=== PATIENT | male | born 1945 | race Caucasian/White ===

== ENCOUNTER 2017-06-26 11:19 | Emergency (ER) | payer OTHER, MEDICARE ==
[2017-06-26 11:45] VITALS: BP 151/93
--- NOTE | 2017-06-26 12:24 | EDM.PDOC ---
ED HPI GENERAL MEDICAL PROBLEM - General Chief Complaint: Upper Extremity Injury/Pain Stated Complaint: FX R PINKY FINGER, OWN VEHICLE Time Seen by Provider: 06/26/17 11:50 Source of Information: Reports: Patient, RN, RN Notes Reviewed, Other (Kelsi Rich PA-C, from [place]) - History of Present Illness INITIAL COMMENTS - FREE TEXT/NARRATIVE: Patient presents to the ER at the request of his PA, Kelsi Rich, from the [place]. He saw her on telemedicine yesterday, and had an x-ray of the right hand. He states he may have hit his hand on something as it became very edematous and ecchymotic. He has a history of stroke, cannot move the right arm/hand, and has no feeling. Kelsi Rich contacted the ER and asked if the patient could be splinted, as he had a fracture on the x-ray from yesterday. Patient denies any further problems. - Related Data Allergies Allergy/AdvReac Type Severity Reaction Status Date / Time No Known Allergies Allergy Verified 06/01/15 06:52 Home Meds: Home Meds Clopidogrel [Plavix] 1 tab PO DAILY 05/28/15 [History] Ezetimibe [Zetia] 1 tab PO DAILY 05/28/15 [History] Multivitamin [Multivitamins] 1 tab PO DAILY 05/28/15 [History] [place]-3/DHA/Epa/Fish Oil [Fish Oil 1,000 mg Softgel] 1 tab PO DAILY 05/28/15 [ History] Potassium Gluconate [Potassium] 1 tab PO DAILY 05/28/15 [History] Past Medical History HEENT History: Reports: Impaired Vision Neurological History: Reports: CVA Other Neuro History: R) sided weakness Social & Family History - Family History Family Medical History: Noncontributory - Tobacco Use Smoking Status *Q: Never Smoker - Caffeine Use Caffeine Use: Reports: None - Recreational Drug Use Recreational Drug Use: No Review of Systems - Review of Systems Review Of Systems: ROS reveals no pertinent complaints other than HPI. ED EXAM, GENERAL - Physical Exam Exam: See Below Exam Limited By: Physical Impairment (past hx of stroke, no feeling, limited ROM Right upper extremity) General Appearance: Alert, WD/WN, No Apparent Distress Eye Exam: Bilateral Eye: Normal Inspection Ears: Normal External Exam, Hearing Grossly Normal Nose: Normal Inspection Throat/Mouth: Normal Inspection, Normal Voice, No Airway Compromise Head: Atraumatic, Normocephalic Neck: Normal Inspection, Supple, Non-Tender, Full Range of Motion Respiratory/Chest: No Respiratory Distress, Lungs Clear, Normal Breath Sounds, No Accessory Muscle Use, Chest Non-Tender Cardiovascular: Normal Peripheral Pulses, Regular Rate, Rhythm, No Edema, No Gallop, No JVD, No Murmur, No Rub Peripheral Pulses: 2+: Radial (L), Radial (R) GI/Abdominal: Normal Bowel Sounds, Soft, Non-Tender (Male) Exam: Deferred Rectal (Males) Exam: Deferred Back Exam: Normal Inspection, Full Range of Motion Extremities: Non-Tender, No Pedal Edema, Normal Capillary Refill, Limited Range of Motion, Other (right hand is grossly edematous and ecchymotic across the proximal joints ). No: Normal Inspection, Normal Range of Motion Neurological: Alert, Oriented, Normal Cognition, No Motor/Sensory Deficits Psychiatric: Normal Affect, Normal Mood Skin Exam: Warm, Dry, Intact, Normal Color, No Rash Lymphatic: No Adenopathy ED TRAUMA EXTREMITY PROCEDURES - Splinting Right Upper Extremity Splint Site: right hand Pre-Procedure NV Status: Normal Post-Procedure NV Status: Normal Splint Material: Fiberglass Splint Design: Gutter Applied & Form Fitted By: Provider Provider Post-Splint Application NV Check: NV Status Normal, Good Position Complications: No Course - Vital Signs Last Recorded V/S: Last Vital Signs Temp 97.1 F 06/26/17 11:38 Pulse 96 06/26/17 11:38 Resp 18 06/26/17 11:38 BP 151/93 H 06/26/17 11:38 Pulse Ox 97 06/26/17 11:38 Departure - Departure Time of Disposition: 12:22 Disposition: Home, Self-Care 01 Condition: Good Clinical Impression: Closed fracture of proximal phalanx of digit of right hand Qualifiers: Encounter type: initial encounter Qualified Code(s): S62.619A - Displaced fracture of proximal phalanx of unspecified finger, initial encounter for closed fracture - Discharge Information Instructions: Cast or Splint Care, [id number], Metacarpal Fracture, Easy-to- Read Referrals: PCP,None [Primary Care Provider] - Forms: ED Department Discharge Additional Instructions: Keep splint on, clean and dry. [facility]. Ice the area as tolerated Tylenol or ibuprofen as directed for pain.
== END 2017-06-26 12:40 | disposition home or self-care (01) ==
LOC: DL.ED 11:19
DX: S62.616A Displaced fracture of proximal phalanx of right little finger, initial encounter for closed fracture (principal); W22.8XXA Striking against or struck by other objects, initial encounter; Z79.899 Other long term (current) drug therapy
CPT/HCPCS: 29125; 99283

== ENCOUNTER 2017-08-11 16:25 | Emergency (ER) | payer MEDICARE, OTHER ==
[2017-08-11 17:25] LABS: CHLORIDE,CL 105 mmol/L (101-111); SODIUM,NA 140 mmol/L (135-145)
--- NOTE | 2017-08-11 17:41 | EDM.PDOC ---
ED HPI GENERAL MEDICAL PROBLEM - General Chief Complaint: Upper Extremity Injury/Pain Stated Complaint: [facility] Time Seen by Provider: 08/11/17 16:35 Source of Information: Reports: Patient History Limitations: Reports: No Limitations - History of Present Illness INITIAL COMMENTS - FREE TEXT/NARRATIVE: This 72 yo male patient was sent to the ED from the [facility] (Telemed) due to right hand swelling. The patient does not know what happened to his hand, but noticed increased swelling today. The patient does not recall any recent trauma , but did have a previous fracture to the hand in the past. According to the [facility] records sent with the patient to the ED, the patient had his splint taken off on 07/24/17. The assessment at that time revealed that there was no swelling to the hand or wrist. During the appointment today, the patient was noted to have cool skin, that is purple. The patient does have a history of a previous CVA that affected the right side of his body also. Onset: Today Duration: Constant Location: Reports: Upper Extremity, Right Quality: Reports: Other (swelling of the right hand) Severity: Moderate Improves with: Reports: None Worsens with: Reports: None Associated Symptoms: Reports: No Other Symptoms - Related Data Allergies Allergy/AdvReac Type Severity Reaction Status Date / Time No Known Allergies Allergy Verified 08/11/17 16:30 Home Meds: Home Meds Fish Oil/[place]-3 Fatty Acids [Fish Oil 1,000 MG] 1 cap PO BID 08/11/17 [History] Multivitamin with Minerals [Multivitamins with Minerals] 1 tab PO DAILY [History] Non-Formulary Medication [NF Drug] 1 drop EYEBOTH BEDTIME 08/11/17 [History] Rivaroxaban [Xarelto] 20 mg PO BEDTIME 08/11/17 [History] atorvaSTATin [Lipitor] 20 mg PO BEDTIME 08/11/17 [History] Past Medical History HEENT History: Reports: Impaired Vision Neurological History: Reports: CVA Other Neuro History: R) sided weakness Social & Family History - Family History Family Medical History: Noncontributory - Tobacco Use Smoking Status *Q: Never Smoker - Caffeine Use Caffeine Use: Reports: None - Recreational Drug Use Recreational Drug Use: No Review of Systems - Review of Systems Review Of Systems: ROS reveals no pertinent complaints other than HPI. ED EXAM, GENERAL - Physical Exam Exam: See Below Exam Limited By: No Limitations General Appearance: Alert, WD/WN, Mild Distress Eye Exam: Bilateral Eye: EOMI, Normal Inspection, PERRL Ears: Normal External Exam, Normal Canal, Hearing Grossly Normal, Normal TMs Nose: Normal Inspection, Normal Mucosa, No Blood Throat/Mouth: Normal Inspection, Normal Lips, Normal Teeth, Normal Gums, Normal Oropharynx, Normal Voice, No Airway Compromise Head: Atraumatic, Normocephalic Neck: Normal Inspection, Supple, Non-Tender, Full Range of Motion Respiratory/Chest: No Respiratory Distress, Lungs Clear, Normal Breath Sounds, No Accessory Muscle Use, Chest Non-Tender Cardiovascular: Normal Peripheral Pulses, Regular Rate, Rhythm, No Edema, No Gallop, No JVD, No Murmur, No Rub GI/Abdominal: Normal Bowel Sounds, Soft, Non-Tender, No Organomegaly, No Distention, No Abnormal Bruit, No Mass (Male) Exam: Deferred Rectal (Males) Exam: Deferred Back Exam: Normal Inspection, Full Range of Motion, NT Extremities: Other (right hand swelling and discoloration) Neurological: Alert, Oriented, CN II-XII Intact, Normal Cognition, Normal Gait, Normal Reflexes, No Motor/Sensory Deficits Psychiatric: Normal Affect, Normal Mood Skin Exam: Warm, Dry, Intact, Normal Color, No Rash Lymphatic: No Adenopathy Course - Vital Signs Last Recorded V/S: Last Vital Signs Temp 36.9 C 08/11/17 17:37 Pulse 98 08/11/17 17:37 Resp 18 08/11/17 17:37 BP 124/82 08/11/17 17:37 Pulse Ox 95 08/11/17 17:37 - Orders/Labs/Meds Orders: Active Orders 24 hr Category Date Time Status Hand Comp Min 3V Rt [CR] Urgent Exams 08/11/17 16:38 Ordered Hand Comp Min 3V Rt [CR] Urgent Exams 08/11/17 16:44 Taken Wrist 2V Rt [CR] Urgent Exams 08/11/17 16:38 Ordered Wrist 2V Rt [CR] Urgent Exams 08/11/17 16:44 Taken CBC WITH AUTO DIFF [HEME] Urgent Lab 08/11/17 16:38 Ordered COMPREHENSIVE METABOLIC PN,CMP [CHEM] Urgent Lab 08/11/17 16:38 Ordered Labs: Laboratory Tests 08/11/17 08/11/17 Range/Units 16:55 16:55 WBC 5.1 (5.0-10.0) 10^3/uL RBC 4.53 L (4.6-6.2) 10^6/uL Hgb 14.8 (14.0-18.0) g/dL Hct 45.5 (40.0-54.0) % MCV 100.4 H (80-100) fL MCH 32.7 (27.0-34.0) pg MCHC 32.5 L (33.0-35.0) g/dL Plt Count 166 (150-450) 10^3/uL Neut % (Auto) 70.4 (42.2-75.2) % Lymph % (Auto) 17.8 L (20.5-50.1) % [place] % (Auto) 10.4 H (2-8) % Eos % (Auto) 1.0 (1.0-3.0) % Baso % (Auto) 0.4 (0.0-1.0) % Sodium 140 (135-145) mmol/L Potassium 4.1 (3.6-5.0) mmol/L Chloride 105 (101-111) mmol/L Carbon Dioxide 27.0 (21.0-31.0) mmol/L Anion Gap 12.1 BUN 14 (7-18) mg/dL Creatinine 0.7 (0.6-1.3) mg/dL Est Cr Clr Drug Dosing 104.58 mL/min Estimated GFR (MDRD) > 60 BUN/Creatinine Ratio 20.00 Glucose 116 H (74-105) mg/dL Calcium 9.0 (8.4-10.2) mg/dl Total Bilirubin 0.6 (0.2-1.0) mg/dL AST 70 H (10-42) IU/L ALT 92 H (10-60) IU/L Alkaline Phosphatase 151 H (42-121) IU/L Total Protein 7.6 (6.7-8.2) g/dl Albumin 3.9 (3.2-5.5) g/dl Globulin 3.7 Albumin/Globulin Ratio 1.05 Departure - Departure Time of Disposition: 18:07 Disposition: Home, Self-Care 01 Condition: Fair Clinical Impression: Soft tissue swelling - Discharge Information Forms: ED Department Discharge Care Plan Goals: The patient was advised of the examination and x-ray results during the visit. The patient was placed in a right forearm and hand splint while in the ED. The patient was encouraged to follow-up with an release of information specialist within the next week. If the patient has any additional symptoms or concerns, the patient should follow-up with his primary care facility or return to the emergency department. - My Orders Last 24 Hours: My Active Orders 08/11/17 16:38 Hand Comp Min 3V Rt [CR] Urgent Wrist 2V Rt [CR] Urgent CBC WITH AUTO DIFF [HEME] Urgent COMPREHENSIVE METABOLIC PN,CMP [CHEM] Urgent 08/11/17 16:44 Hand Comp Min 3V Rt [CR] Urgent Wrist 2V Rt [CR] Urgent - Assessment/Plan Last 24 Hours: My Active Orders 08/11/17 16:38 Hand Comp Min 3V Rt [CR] Urgent Wrist 2V Rt [CR] Urgent CBC WITH AUTO DIFF [HEME] Urgent COMPREHENSIVE METABOLIC PN,CMP [CHEM] Urgent 08/11/17 16:44 Hand Comp Min 3V Rt [CR] Urgent Wrist 2V Rt [CR] Urgent
--- NOTE | 2017-08-11 18:21 | CR ---
Impression: 72-year-old male history of previous trauma and now soft tissue swelling/pain. Interpretation: Old fracture deformities distal end of the fifth metacarpal and base of the proximal phalanx right small finger as noted on June exam. Soft tissue swelling dorsum of the hand. Generalized osteopenia but no sign of acute right wrist fracture or dislocation. No foreign bodies.
[2017-08-11 18:29] VITALS: BP 143/95
--- NOTE | 2017-08-12 11:13 | CR ---
Clinical history: 72-year-old male pain and swelling (history fracture). Interpretation: Old healed fracture deformity head of the fifth metacarpal and base of the proximal p halanx this same small finger (arthritic changes fifth carpophalangeal joint close breast. Generalized osteopenia and chronic arthritic changes carpal metacarpal, first carpophalangeal and all interphalangeal/DIP joints. There is soft tissue swelling over the dorsal ulnar aspect of the hand but no sign of underlying fore ign body, inflammatory periostitis or acute fracture. CONCLUSION: Pronounced soft tissue swelling. Old fracture deformities fifth metacarpal and small fing er present on 25 June 2017 exam. No acute new fracture..
== END 2017-08-11 18:26 | disposition home or self-care (01) ==
LOC: DL.ED 16:25
DX: M79.89 Other specified soft tissue disorders (principal)
CPT/HCPCS: 36415; 73100-RT; 73130-RT; 80053; 85025; 99283

== ENCOUNTER → 2020-07-05 | Day surgery (SDC) | payer OTHER, MEDICARE ==
[~2020-07-05] MED LIST: Benzocaine 20% Topical Spray UD MUCMEM ONE; Dextrose 5%-0.45% NaCl 1,000 ML IV SCH; Midazolam 1 MG/ML 2 ML SDV IV ONE; Midazolam 1 MG/ML 2 ML SDV ONE; fentaNYL 100 MCG/2 ML SDV IV ONE; fentaNYL 100 MCG/2 ML SDV ONE
[2020-07-05 12:50] VITALS: BP 131/85; PULSE 82
--- NOTE | 2020-07-05 14:13 | OR ---
DATE: 07/05/2020 PREOPERATIVE DIAGNOSIS: Anemia. POSTOPERATIVE DIAGNOSIS: Anemia. PROCEDURE: Total colonoscopy. ANESTHESIA: Conscious sedation with IV Versed and fentanyl. SPECIMEN: None. OPERATIVE FINDINGS: Moderate sigmoid diverticulosis, otherwise normal. No evidence of bleeding sites. INDICATION FOR PROCEDURE: This 75-year-old male has anemia. He has dropped his hemoglobin from 14 to 10 over the last year. PROCEDURE IN DETAIL: After adequate preparation, a colonoscope was inserted into the rectum. This was easily passed all the way to the cecum. Confirmation of the cecum was made by visualization of the ileocecal valve and a light shining through the right lower quadrant. The bowel prep was excellent. On withdrawal of the scope, he does have some sigmoid diverticulosis. Rectal and anal examination were normal. Air was suctioned from the colon and the scope removed. [facility] /[id number]
--- NOTE | 2020-07-05 14:34 | OR ---
DATE: 07/05/2020 PREOPERATIVE DIAGNOSIS: Anemia. POSTOPERATIVE DIAGNOSIS: Anemia. PROCEDURE: Esophagogastroduodenoscopy with biopsy of gastric mucosa. ANESTHESIA: Conscious sedation with IV Versed and fentanyl. SPECIMEN: Gastric biopsies. OPERATIVE FINDINGS: Several small ulcers in the upper body of the stomach, they are not actively bleeding. Pathology is pending on the biopsy. INDICATION FOR PROCEDURE: This 75-year-old male has anemia. He has had a drop in hemoglobin from 14 to 10 over this last year. PROCEDURE IN DETAIL: After adequate preparation, a gastroscope was inserted into the esophagus. This was passed down to the EG junction. Examination of this was normal. He may have one little streak of esophagitis, but not significant, and no ulcerations or masses. The scope was advanced into the stomach. Both forward and retroflexed views were done and this does show 3 or 4 small punctate ulcers in the upper body of the stomach, not truly in the fundus, but in the body-fundus junction. These are not bleeding. Biopsy of two of these was taken for pathological confirmation. The scope was advanced through the pylorus and the first and second parts of the duodenum were normal. Air was suctioned from the stomach and the scope removed. [facility] /[id number]
== END ==
LOC: DL.ENDO 08:18
PROVIDERS: ATTEND Surgery
DX: K57.30 Diverticulosis of large intestine without perforation or abscess without bleeding (principal); D64.9 Anemia, unspecified; K29.50 Unspecified chronic gastritis without bleeding; K20.90 Esophagitis, unspecified without bleeding; K25.9 Gastric ulcer, unspecified as acute or chronic, without hemorrhage or perforation; Z01.812 Encounter for preprocedural laboratory examination; Z20.828 Contact with and (suspected) exposure to other viral communicable diseases; Z79.899 Other long term (current) drug therapy
CPT/HCPCS: A9270-GY; J2250; J3010; J7042; U0002

== ENCOUNTER 2021-08-27 15:28 | Emergency (ER) | payer OTHER ==
[2021-08-27 15:57] VITALS: BP 157/86; PULSE 104
[2021-08-27] MEDS ORDERED: Sodium Chloride 0.9% 10 ML Syringe FLUSH PRN (16:13)
[2021-08-27] MEDS ORDERED: Sodium Chloride 0.9% 500 ML IV SCH (16:15)
--- NOTE | 2021-08-27 16:49 | CR ---
EXAMINATION: Chest 1V Frontal SEX: Male AGE: 76 years CLINICAL HISTORY: 76-year-old male with cough and clinical rhonchi. Interpretation: No acute new cardiopulmonary abnormality since PA comparison CXR 10 June 2021. Borderline cardiomegaly. Evidence of several old healed fracture deformities left hemithorax with ipsilateral pleural parenchymal scarring. No new pulmonary vascular congestion, cephalization of flow, alveolar edema or dependent pleural fluid accumulation. No new lung mass or hilar lymphadenopathy. No alveolar consolidation, air bronchograms or peripheral "groundglass" interstitial lung densities. No pneumothorax or pneumomediastinum. Midline airway unremarkable. No free subdiaphragmatic air.
[2021-08-27 17:55] LABS: ANION GAP 12.9 mEq/L (7-13); CHLORIDE,CL 105 mmol/L (98-107); SODIUM,NA 145 mmol/L (136-145)
[2021-08-27 18:19] LABS: CORONAVIRUS COVID-19 NAA NEGATIVE (NEGATIVE); RESPIRATORY SYNCYTIAL VIR NAA NEGATIVE (NEGATIVE)
[2021-08-27] MEDS ORDERED: Oseltamivir 75 MG Cap PO ONE (18:53)
--- NOTE | 2021-08-27 18:53 | EDM.PDOC ---
Scribed by Marely Pizarro 08/27/21 [id number] for Fransico Stock MD ED HPI GENERAL MEDICAL PROBLEM - General Chief Complaint: Cardiovascular Problem Stated Complaint[facility] Time Seen by Provider: 08/27/21 15:41 Source of Information: Reports: Patient, RN, RN Notes Reviewed History Limitations: Reports: No Limitations - History of Present Illness INITIAL COMMENTS - FREE TEXT/NARRATIVE: Patient presents to ED via POV [facility] for evaluation of A-fib. Patient states that on 08/23/21 he fell around 1000 and was not found until the afternoon on 08/24/21. Patient denies pain, although he has bruising to his left shoulder and left anterior chest. Patient also denies head trauma. Patient does have history of CVA and a-fib. Takes Plavix, missed 08/24 dose. Patient has expressive aphasia. Onset: Gradual Duration: Getting Worse Location: Reports: Generalized Severity: Severe Improves with: Reports: None Worsens with: Reports: None Associated Symptoms: Reports: No Other Symptoms - Related Data Allergies Allergy/AdvReac Type Severity Reaction Status Date / Time No Known Allergies Allergy Verified 08/27/21 15:33 Home Meds: Home Meds Fish Oil/[place]-3 Fatty Acids [Fish Oil 1,000 MG] 1,000 mg PO BID 08/11/17 [History] Multivitamin with Minerals [Multivitamins with Minerals] 1 tab PO DAILY 08/11/17 [History] Non-Formulary Medication [NF Drug] 1 drop EYEBOTH BEDTIME 08/11/17 [History] Rivaroxaban [Xarelto] 20 mg PO BEDTIME 08/11/17 [History] atorvaSTATin [Lipitor] 20 mg PO BEDTIME 08/11/17 [History] Past Medical History HEENT History: Reports: Impaired Vision Cardiovascular History: Reports: High Cholesterol, Hypertension Respiratory History: Reports: None Gastrointestinal History: Reports: Other (See Below) Other Gastrointestinal History: APHASIA Genitourinary History: Reports: None Musculoskeletal History: Reports: Other (See Below) Other Musculoskeletal History: RIGHT SIDED HEMIPARESIS Neurological History: Reports: CVA Other Neuro History: R) sided weakness Psychiatric History: Reports: None Endocrine/Metabolic History: Reports: Obesity/BMI 30+ Hematologic History: Reports: None Immunologic History: Reports: None Oncologic (Cancer) History: Reports: None Dermatologic History: Reports: Other (See Below) Other Dermatologic History: EDEMA TO RIGHT ARM AND HAND - Infectious Disease History Infectious Disease History: Reports: Measles - Past Surgical History Head Surgeries/Procedures: Reports: None HEENT Surgical History: Reports: None Cardiovascular Surgical History: Reports: None Respiratory Surgical History: Reports: None GI Surgical History: Reports: Colonoscopy, EGD Endocrine Surgical History: Reports: None Neurological Surgical History: Reports: None Musculoskeletal Surgical History: Reports: None Oncologic Surgical History: Reports: None Dermatological Surgical History: Reports: None Social & Family History - Family History Family Medical History: No Pertinent Family History - Caffeine Use Caffeine Use: Reports: Soda Other Caffeine Use: SODA POP ED ROS GENERAL - Review of Systems Review Of Systems: Comprehensive ROS is negative, except as noted in HPI. ED EXAM, GENERAL - Physical Exam Exam: See Below Exam Limited By: No Limitations General Appearance: Alert, WD/WN, No Apparent Distress Eye Exam: Bilateral Eye: EOMI, Normal Inspection, PERRL Ears: Normal External Exam, Normal Canal, Hearing Grossly Normal, Normal TMs Nose: Normal Inspection, Normal Mucosa, No Blood Throat/Mouth: Normal Inspection, Normal Lips, Normal Teeth, Normal Gums, Normal Oropharynx, Normal Voice, No Airway Compromise Head: Atraumatic, Normocephalic Neck: Normal Inspection, Supple, Non-Tender, Full Range of Motion Respiratory/Chest: No Respiratory Distress, Lungs Clear, Normal Breath Sounds, No Accessory Muscle Use, Chest Non-Tender Cardiovascular: Irregularly Irregular GI/Abdominal: Normal Bowel Sounds, Soft, Non-Tender, No Organomegaly, No Distention, No Abnormal Bruit, No Mass (Male) Exam: Deferred Rectal (Males) Exam: Deferred Back Exam: Normal Inspection, Full Range of Motion, NT Extremities: Normal Inspection, Normal Range of Motion, Non-Tender, Normal Capillary Refill, No Pedal Edema Neurological: Other (right sided hemiparesis) Psychiatric: Normal Affect, Normal Mood Skin Exam: Warm, Dry, Intact, Normal Color, No Rash Lymphatic: No Adenopathy #1 Interpretation EKG Date: 08/27/21 Time: 16:44 Rhythm: A-Fib (with PVCs) Rate (Beats/Min): 109 [place]: Normal P-Wave: Present ST-T: Normal (borderline flat T waves diffuse) QT: Normal Course - Vital Signs Last Recorded V/S: Last Vital Signs Temp 98.7 F 08/27/21 15:33 Pulse 104 H 08/27/21 15:33 Resp 24 H 08/27/21 15:33 BP 157/86 H 08/27/21 15:33 Pulse Ox - Orders/Labs/Meds Orders: Active Orders 24 hr Category Date Time Status Peripheral IV Care [RC] . DIRECTED Care 08/27/21 16:14 Active CULTURE BLOOD [BC] Stat Lab 08/27/21 16:40 Received CULTURE BLOOD [BC] Stat Lab 08/27/21 16:46 Results UA RFX JOSEPHINE AND CULT IF INDIC [URIN] Stat Lab 08/27/21 16:13 Ordered Oseltamivir [Tamiflu] Med 08/27/21 18:53 Once 75 mg PO ONETIME ONE Sodium Chloride 0.9% [Normal Saline] 500 ml Med 08/27/21 16:15 Active IV .BOLUS Sodium Chloride 0.9% [Saline Flush] Med 08/27/21 16:13 Active 10 ml FLUSH ASDIRECTED PRN Blood Culture x2 Reflex Set [OM.PC] Stat Oth 08/27/21 16:12 Ordered Peripheral IV Insertion Adult [OM.PC] Stat Oth 08/27/21 16:13 Ordered Medication Orders Sodium Chloride (Normal Saline) 500 mls @ 999 mls/hr IV .BOLUS BETTY Last Admin: 08/27/21 18:15 Dose: 999 mls/hr Documented by: [id number] Oseltamivir Phosphate (Oseltamivir 75 Mg Cap) 75 mg PO ONETIME ONE Stop: 08/27/21 18:54 Sodium Chloride (Sodium Chloride 0.9% 10 Ml Syringe) 10 ml FLUSH ASDIRECTED PRN PRN Reason: Keep Vein Open Last Admin: 08/27/21 18:15 Dose: 10 ml Documented by: [id number] Labs: Laboratory Tests 08/27/21 08/27/21 08/27/21 Range/Units 16:40 16:40 16:40 WBC 2.9 L (5.0-10.0) 10^3/uL RBC 4.20 L (4.6-6.2) 10^6/uL Hgb 13.6 L (14.0-18.0) g/dL Hct 41.2 (40.0-54.0) % MCV 98.1 (80-100) fL MCH 32.4 (27.0-34.0) pg MCHC 33.0 (33.0-35.0) g/dL Plt Count 136 L (150-450) 10^3/uL Neut % (Auto) 64.8 (42.2-75.2) % Lymph % (Auto) 24.0 (20.5-50.1) % [place] % (Auto) 10.6 H (2-8) % Eos % (Auto) 0.3 L (1.0-3.0) % Baso % (Auto) 0.3 (0.0-1.0) % Sodium 145 (136-145) mmol/L Potassium 3.9 (3.5-5.1) mmol/L Chloride 105 (98-107) mmol/L Carbon Dioxide 31 (21-32) mmol/L Anion Gap 12.9 (7-13) mEq/L BUN 23 H (7-18) mg/dL Creatinine 0.77 (0.70-1.30) mg/dL Est Cr Clr Drug Dosing 89.64 mL/min Estimated GFR (MDRD) > 60 BUN/Creatinine Ratio 29.9 (No establ ref range) Glucose 104 H (70-99) mg/dL Lactic Acid 0.8 (0.4-2.0) mmol/L Calcium 7.7 L (8.5-10.1) mg/dL Magnesium 2.0 (1.8-2.4) mg/dL Total Bilirubin 0.8 (0.2-1.0) mg/dL AST 233 H (15-37) U/L ALT 102 H (16-63) U/L Alkaline Phosphatase 73 (46-116) U/L Creatine Kinase 4462 H (39-308) U/L Troponin I High Sens 15 (<=76) pg/mL B-Natriuretic Peptide 23 (0-100) pg/ml Total Protein 6.6 (6.4-8.2) g/dL Albumin 2.9 L (3.4-5.0) g/dL Globulin 3.7 Albumin/Globulin Ratio 0.78 Influenza Type A RNA (NEGATIVE) RSV RNA (INAAT) (NEGATIVE) Influenza Type B RNA (NEGATIVE) SARS-CoV-2 RNA (KELSI) (NEGATIVE) 08/27/21 Range/Units 17:18 WBC (5.0-10.0) 10^3/uL RBC (4.6-6.2) 10^6/uL Hgb (14.0-18.0) g/dL Hct (40.0-54.0) % MCV (80-100) fL MCH (27.0-34.0) pg MCHC (33.0-35.0) g/dL Plt Count (150-450) 10^3/uL Neut % (Auto) (42.2-75.2) % Lymph % (Auto) (20.5-50.1) % Crawford % (Auto) (2-8) % Eos % (Auto) (1.0-3.0) % Baso % (Auto) (0.0-1.0) % Sodium (136-145) mmol/L Potassium (3.5-5.1) mmol/L Chloride (98-107) mmol/L Carbon Dioxide (21-32) mmol/L Anion Gap (7-13) mEq/L BUN (7-18) mg/dL Creatinine (0.70-1.30) mg/dL Est Cr Clr Drug Dosing mL/min Estimated GFR (MDRD) BUN/Creatinine Ratio (No establ ref range) Glucose (70-99) mg/dL Lactic Acid (0.4-2.0) mmol/L Calcium (8.5-10.1) mg/dL Magnesium (1.8-2.4) mg/dL Total Bilirubin (0.2-1.0) mg/dL AST (15-37) U/L ALT (16-63) U/L Alkaline Phosphatase (46-116) U/L Creatine Kinase (39-308) U/L Troponin I High Sens (<=76) pg/mL B-Natriuretic Peptide (0-100) pg/ml Total Protein (6.4-8.2) g/dL Albumin (3.4-5.0) g/dL Globulin Albumin/Globulin Ratio Influenza Type A RNA Positive H (NEGATIVE) RSV RNA (INAAT) Negative (NEGATIVE) Influenza Type B RNA Negative (NEGATIVE) SARS-CoV-2 RNA (KELSI) Negative (NEGATIVE) Meds: Medications Generic Name Dose Route Start Last Admin Trade Name Freq PRN Reason Stop Dose Admin Sodium Chloride 500 mls @ 999 mls/hr 08/27/21 16:15 08/27/21 18:15 Normal Saline IV 999 mls/hr .BOLUS BETTY Administration Oseltamivir Phosphate 75 mg 08/27/21 18:53 Oseltamivir 75 Mg Cap PO 08/27/21 18:54 ONETIME ONE Sodium Chloride 10 ml 08/27/21 16:13 08/27/21 18:15 Sodium Chloride 0.9% 10 Ml Syringe FLUSH 10 ml ASDIRECTED PRN Administration Keep Vein Open - Radiology Interpretation Free Text/Narrative:: Chest x-ray: No acute cardiopulmonary abnormality since PA comparison chest x- ray 06/10/21. See rad report. Departure - Departure Time of Disposition: 18:54 Disposition: Home, Self-Care 01 Condition: Fair Clinical Impression: Dehydration, Influenza A Fall at home Qualifiers: Encounter type: initial encounter Qualified Code(s): W19.XXXA - Unspecified fall, initial encounter; Y92.009 - Unspecified place in unspecified non- institutional (private) residence as the place of occurrence of the external cause Instructions: Influenza, Adult, [id number], Dehydration, Adult, [id number] Forms: ED Department Discharge Additional Instructions: Rx: Tamilflu 75mg Drink plenty of water. Get a life alert bracelet. Follow up in clinic in 3 to 5 days for recheck if needed. Sepsis Event Note (ED) - Focused Exam Vital Signs: Vital Signs Temp Pulse Resp BP 08/27/21 15:33 98.7 F 104 H 24 H 157/86 H - My Orders Last 24 Hours: My Active Orders 08/27/21 16:12 Blood Culture x2 Reflex Set [OM.PC] Stat 08/27/21 16:13 UA RFX JOSEPHINE AND CULT IF INDIC [URIN] Stat Sodium Chloride 0.9% [Saline Flush] 10 ml FLUSH ASDIRECTED PRN Peripheral IV Insertion Adult [OM.PC] Stat 08/27/21 16:14 Peripheral IV Care [RC] . DIRECTED 08/27/21 16:15 Sodium Chloride 0.9% [Normal Saline] 500 ml IV .BOLUS 08/27/21 16:40 CULTURE BLOOD [BC] Stat 08/27/21 16:46 CULTURE BLOOD [BC] Stat 08/27/21 18:53 Oseltamivir [Tamiflu] 75 mg PO ONETIME ONE - Assessment/Plan Last 24 Hours: My Active Orders 08/27/21 16:12 Blood Culture x2 Reflex Set [OM.PC] Stat 08/27/21 16:13 UA RFX JOSEPHINE AND CULT IF INDIC [URIN] Stat Sodium Chloride 0.9% [Saline Flush] 10 ml FLUSH ASDIRECTED PRN Peripheral IV Insertion Adult [OM.PC] Stat 08/27/21 16:14 Peripheral IV Care [RC] . DIRECTED 08/27/21 16:15 Sodium Chloride 0.9% [Normal Saline] 500 ml IV .BOLUS 08/27/21 16:40 CULTURE BLOOD [BC] Stat 08/27/21 16:46 CULTURE BLOOD [BC] Stat 08/27/21 18:53 Oseltamivir [Tamiflu] 75 mg PO ONETIME ONE I have read and agree with the documentation that has been completed regarding this visit. By signing this record, I attest that the documentation was completed in my physical presence and is an accurate record of the encounter.
== END 2021-08-27 19:14 | disposition home or self-care (01) ==
LOC: DL.ED 15:28
DX: E86.0 Dehydration (principal); J10.1 Influenza due to other identified influenza virus with other respiratory manifestations; I48.91 Unspecified atrial fibrillation; E78.00 Pure hypercholesterolemia, unspecified; I10 Essential (primary) hypertension; E66.9 Obesity, unspecified; Z68.27 Body mass index [BMI] 27.0-27.9, adult; Z79.01 Long term (current) use of anticoagulants; Z79.899 Other long term (current) drug therapy; Z20.822 Contact with and (suspected) exposure to COVID-19
CPT/HCPCS: 0241U; 36415; 71045; 80053; 82550; 83605; 83735; 83880; 84484; 85025; 87040; 93005; 99285; A9270; J7040

== ENCOUNTER 2023-09-17 09:00 | Emergency (ER) | payer OTHER ==
[2023-09-17 09:32] VITALS: BP 156/101; PULSE 90
[2023-09-17 09:38] LABS: EOSINOPHILS PERCENT AUTO 1.2 % (1.0-3.0); HEMATOCRIT 42.5 % (40.0-54.0); HEMOGLOBIN 13.2 g/dL (14.0-18.0); LYMPHOCYTES PERCENT AUTO 25.3 % (20.5-50.1); MEAN CORPUSCULAR HEMOGLOBIN 30.9 pg (27.0-34.0); MEAN CORPUSCULAR HGB CONC 31.1 g/dL (33.0-35.0); MEAN CORPUSCULAR VOLUME 99.5 fL (80-100); MONOCYTES PERCENT AUTO 9.4 % (2-8); NEUTROPHILS PERCENT AUTO 63.1 % (42.2-75.2); PLATELET COUNT,PLT 163 10^3/uL (150-450); RED BLOOD CELL COUNT 4.27 10^6/uL (4.6-6.2); WHITE BLOOD CELL COUNT,WBC 4.9 10^3/uL (5.0-10.0)
[2023-09-17 09:47] LABS: ALBUMIN 3.1 g/dL (3.4-5.0); ANION GAP 11.5 mEq/L (7-13); BILIRUBIN TOTAL 0.6 mg/dL (0.2-1.0); CALCIUM 8.3 mg/dL (8.5-10.1); EST CRCL DRUG DOSING (CG) 60.8 mL/min; POTASSIUM,K 4.5 mmol/L (3.5-5.1); PROTEIN TOTAL,TP 6.4 g/dL (6.4-8.2)
[2023-09-17 09:51] LABS: A/G RATIO 0.94
[2023-09-17 09:56] LABS: INR 1.3 (0.9-1.2); PROTHROMBIN TIME 13.3 SEC (9.0-12.0)
[2023-09-17] MEDS ORDERED: Sodium Chloride 0.9% 10 ML Syringe FLUSH PRN (10:26)
== END 2023-09-17 10:48 | disposition home or self-care (01) ==
LOC: DL.ED 09:00
DX: R04.0 Epistaxis (principal); I10 Essential (primary) hypertension; E78.00 Pure hypercholesterolemia, unspecified; E66.9 Obesity, unspecified; Z86.73 Personal history of transient ischemic attack (TIA), and cerebral infarction without residual deficits; Z79.899 Other long term (current) drug therapy; Z68.30 Body mass index [BMI] 30.0-30.9, adult
CPT/HCPCS: 30903; 36415; 80053; 85025; 85610; 99284-25

== ENCOUNTER 2023-11-26 13:46 | Inpatient (IN) | payer OTHER ==
[2023-11-26 14:40] LABS: BASOPHILS PERCENT AUTO 0.3 % (0.0-1.0); HEMATOCRIT 44.8 % (40.0-54.0); HEMOGLOBIN 14.7 g/dL (14.0-18.0); LYMPHOCYTES PERCENT AUTO 10.8 % (20.5-50.1); MEAN CORPUSCULAR HEMOGLOBIN 30.7 pg (27.0-34.0); MEAN CORPUSCULAR HGB CONC 32.8 g/dL (33.0-35.0); MEAN CORPUSCULAR VOLUME 93.5 fL (80-100); MONOCYTES PERCENT AUTO 7.6 % (2-8); NEUTROPHILS PERCENT AUTO 81.3 % (42.2-75.2); PLATELET COUNT,PLT 159 10^3/uL (150-450); RED BLOOD CELL COUNT 4.79 10^6/uL (4.6-6.2); WHITE BLOOD CELL COUNT,WBC 6.8 10^3/uL (5.0-10.0)
[2023-11-26 15:09] LABS: LACTIC ACID 4.2 mmol/L (0.4-2.0)
[2023-11-26] MEDS: Sodium Chloride 0.9% 1,000 ML IV ONE ×2 (15:16→16:07)
[2023-11-26 15:19] LABS: ALBUMIN 3.3 g/dL (3.4-5.0); ANION GAP 16.1 mEq/L (7-13); BILIRUBIN TOTAL 1.2 mg/dL (0.2-1.0); BUN/CREATININE RATIO 31.8 (No establ ref range); C-REACTIVE PROTEIN 13.36 ng/dL (<=0.50); CALCIUM 8.7 mg/dL (8.5-10.1); CREATININE 1.1 mg/dL (0.70-1.30); EST CRCL DRUG DOSING (CG) 60.85 mL/min; POTASSIUM,K 4.1 mmol/L (3.5-5.1)
[2023-11-26] MEDS: Sodium Chloride 0.9% 10 ML Syringe FLUSH PRN (15:20)
[2023-11-26 15:22] LABS: A/G RATIO 0.7
[2023-11-26 15:33] LABS: CORONAVIRUS COVID-19 NAA NEGATIVE (NEGATIVE); INFLUENZA A NAA NEGATIVE (NEGATIVE); INFLUENZA B NAA NEGATIVE (NEGATIVE); RESPIRATORY SYNCYTIAL VIR NAA NEGATIVE (NEGATIVE)
[2023-11-26 16:28] LABS: APPEARANCE,URINE CLEAR (CLEAR); BILIRUBIN,URINE NEGATIVE (NEGATIVE); COLOR,URINE DARK YELLOW (YELLOW); GLUCOSE,URINE NEGATIVE (NEGATIVE); KETONES,URINE TRACE (NEGATIVE); LEUKOCYTE ESTERASE,URINE NEGATIVE (NEGATIVE); NITRITE,URINE NEGATIVE (NEGATIVE); OCCULT BLOOD,URINE SMALL (NEGATIVE); PROTEIN,URINE 100 (NEGATIVE); UROBILINOGEN,URINE 0.2 mg/dL (0.2-1.0)
[2023-11-26 16:45] LABS: MUCUS,URINE MODERATE /LPF (NOT SEEN)
[2023-11-26 16:46] LABS: AMORPHOUS SEDIMENT,URINE FEW /HPF (NOT SEEN); BACTERIA,URINE FEW /HPF (0-FEW/HPF); EPITHELIAL CELLS,URINE RARE /HPF (NOT SEEN); GRANULAR CASTS,URINE FEW; HYALINE CASTS,URINE MODERATE
[2023-11-26 16:47] LABS: WBC,URINE 0-5 /HPF (0-5/HPF)
[2023-11-26] MEDS ORDERED: Sennosides/Docusate Sodium 50-8.6 MG Tab PO PRN (18:16)
[2023-11-26] MEDS ORDERED: Acetaminophen 325 MG Tab PO PRN (18:16)
[2023-11-26] MEDS ORDERED: Naloxone 2 MG/2 ML Syringe IVPUSH PRN (18:16)
[2023-11-26] MEDS ORDERED: Magnesium Hydroxide 400 MG/5 ML Susp 30 ML Cup PO PRN (18:16)
[2023-11-26] MEDS ORDERED: HYDROmorphone 0.5 MG/0.5 ML Syringe IVPUSH PRN (18:16)
[2023-11-26] MEDS ORDERED: Polyethylene Glycol 3350 Powder 17 GM Packet PO PRN (18:16)
[2023-11-26] MEDS ORDERED: Albuterol/Ipratropium 3.0-0.5 MG/3 ML Neb Soln NEB PRN (18:16)
[2023-11-26] MEDS ORDERED: Ondansetron 4 MG/2 ML SDV IVPUSH PRN (18:16)
[2023-11-26] MEDS ORDERED: Metoprolol Tartrate 5 MG/5 ML SDV IVPUSH PRN (18:20)
[2023-11-26] MEDS ORDERED: hydrALAZINE 20 MG/ML SDV IVPUSH PRN (18:20)
[2023-11-26] MEDS: Metoprolol Tartrate 25 MG Tab PO SCH ×2 (19:32→20:54)
[2023-11-26 19:43] LABS: T4 FREE 1.35 ng/dL (0.76-1.46); TSH ULTRASENSITIVE 1.01 uIU/mL (0.36-3.74)
[2023-11-26] MEDS: Diltiazem 125 MG in Sodium Chloride 0.9% 100 ML IV SCH (20:45)
[2023-11-26] MEDS: Levofloxacin/Dextrose 5%-Water 500 MG in Premix Bag 1 BAG IV ONE (20:50)
[2023-11-26] MEDS: Sodium Chloride 0.9% 1,000 ML IV SCH (20:50)
[2023-11-26] MEDS: guaiFENesin 600 MG Tab.ER PO SCH (20:54)
[2023-11-26] MEDS: Rivaroxaban 10 MG Tab PO SCH (20:54)
[2023-11-26] MEDS: atorvaSTATin 20 MG Tab PO SCH (20:54)
[2023-11-26] MEDS: Latanoprost 0.005% Ophth Soln 2.5 ML Bottle EYEBOTH SCH (20:55)
[2023-11-27 06:40] LABS: HEMATOCRIT 38.5 % (40.0-54.0); HEMOGLOBIN 12.1 g/dL (14.0-18.0); MEAN CORPUSCULAR HEMOGLOBIN 30.3 pg (27.0-34.0); MEAN CORPUSCULAR HGB CONC 31.4 g/dL (33.0-35.0); MEAN CORPUSCULAR VOLUME 96.3 fL (80-100); PLATELET COUNT,PLT 148 10^3/uL (150-450); WHITE BLOOD CELL COUNT,WBC 4.9 10^3/uL (5.0-10.0)
[2023-11-27 07:10] LABS: BASOPHILS PERCENT AUTO 0.4 % (0.0-1.0); EOSINOPHILS PERCENT AUTO 0.2 % (1.0-3.0); LYMPHOCYTES PERCENT AUTO 25.5 % (20.5-50.1); MONOCYTES PERCENT AUTO 8.6 % (2-8); NEUTROPHILS PERCENT AUTO 65.3 % (42.2-75.2)
[2023-11-27 07:14] LABS: ALBUMIN 2.4 g/dL (3.4-5.0); ANION GAP 10.7 mEq/L (7-13); BILIRUBIN TOTAL 0.8 mg/dL (0.2-1.0); BUN/CREATININE RATIO 37.5 (No establ ref range); C-REACTIVE PROTEIN 10.44 ng/dL (<=0.50); CALCIUM 7.7 mg/dL (8.5-10.1); CREATININE 0.8 mg/dL (0.70-1.30); EST CRCL DRUG DOSING (CG) 83.67 mL/min; POTASSIUM,K 3.7 mmol/L (3.5-5.1)
[2023-11-27 07:16] LABS: A/G RATIO 0.67
[2023-11-27 08:07] LABS: BAND PERCENT MAN 1 %; MONOCYTES PERCENT MAN 5 % (2-8); SEG NEUTROPHILS PERCENT MAN 64 % (42-75)
[2023-11-27 08:09] LABS: LYMPHOCYTES % ATYPICAL MANUAL 5 %; LYMPHOCYTES PERCENT MAN 25 % (20-50)
[2023-11-27] MEDS: Cholecalciferol (Vitamin D3) 25 MCG Tab PO SCH (08:12)
[2023-11-27] MEDS: Saccharomyces Boulardii (Probiotic) 250 MG Cap PO SCH (08:12)
[2023-11-27] MEDS: Levofloxacin/Dextrose 5%-Water 500 MG in Premix Bag 1 BAG IV SCH (20:20)
[2023-11-28 06:49] LABS: ALBUMIN 2.3 g/dL (3.4-5.0); BILIRUBIN TOTAL 0.5 mg/dL (0.2-1.0); BUN/CREATININE RATIO 36.7 (No establ ref range); C-REACTIVE PROTEIN 6.24 ng/dL (<=0.50); CALCIUM 7.9 mg/dL (8.5-10.1); CREATININE 0.79 mg/dL (0.70-1.30); EST CRCL DRUG DOSING (CG) 84.73 mL/min; MAGNESIUM 1.9 mg/dL (1.8-2.4)
[2023-11-28 06:50] LABS: A/G RATIO 0.62
[2023-11-28] MEDS: Azithromycin 500 MG in Sodium Chloride 0.9% 250 ML IV SCH (09:28)
[2023-11-28] MEDS: Ampicillin/Sulbactam Na 1.5 GM in Sodium Chloride 0.9% 100 ML IV SCH (11:24)
[2023-11-28] MEDS: Pantoprazole 40 MG Tab.CR PO SCH (15:23)
[2023-11-28] MEDS: Sucralfate 1 GM Tab PO SCH (17:22)
[2023-11-28 18:12] LABS: HEMATOCRIT 37.2 % (40.0-54.0); HEMOGLOBIN 11.4 g/dL (14.0-18.0)
[2023-11-28] MEDS: Metoprolol Tartrate 25 MG Tab PO SCH ×2 (19:23→20:05)
[2023-11-28] MEDS: Famotidine 20 MG/2 ML SDV IVPUSH ONE (20:53)
[2023-11-29 00:30] LABS: HEMATOCRIT 35.1 % (40.0-54.0); HEMOGLOBIN 10.8 g/dL (14.0-18.0)
[2023-11-29 06:27] LABS: BASOPHILS PERCENT AUTO 0.6 % (0.0-1.0); EOSINOPHILS PERCENT AUTO 1.8 % (1.0-3.0); HEMATOCRIT 36.1 % (40.0-54.0); HEMOGLOBIN 11.1 g/dL (14.0-18.0); LYMPHOCYTES PERCENT AUTO 25.1 % (20.5-50.1); MEAN CORPUSCULAR HEMOGLOBIN 30.2 pg (27.0-34.0); MEAN CORPUSCULAR HGB CONC 30.7 g/dL (33.0-35.0); MEAN CORPUSCULAR VOLUME 98.1 fL (80-100); NEUTROPHILS PERCENT AUTO 64.5 % (42.2-75.2); PLATELET COUNT,PLT 176 10^3/uL (150-450); RED BLOOD CELL COUNT 3.68 10^6/uL (4.6-6.2); WHITE BLOOD CELL COUNT,WBC 5.1 10^3/uL (5.0-10.0)
[2023-11-29 06:56] LABS: ALBUMIN 2.3 g/dL (3.4-5.0); ANION GAP 10.4 mEq/L (7-13); BILIRUBIN TOTAL 0.6 mg/dL (0.2-1.0); BUN/CREATININE RATIO 31.5 (No establ ref range); C-REACTIVE PROTEIN 3.19 ng/dL (<=0.50); CALCIUM 8.1 mg/dL (8.5-10.1); CREATININE 0.73 mg/dL (0.70-1.30); EST CRCL DRUG DOSING (CG) 91.69 mL/min; MAGNESIUM 1.9 mg/dL (1.8-2.4); PROTEIN TOTAL,TP 6.2 g/dL (6.4-8.2)
[2023-11-29 06:59] LABS: A/G RATIO 0.59
[2023-11-29 07:00] LABS: POTASSIUM,K 4.4 mmol/L (3.5-5.1)
[2023-11-29] MEDS: Piperacillin/Tazobactam 4.5 GM in Sodium Chloride 0.9% 100 ML IV SCH (17:15)
[2023-11-30 06:48] LABS: BASOPHILS PERCENT AUTO 0.4 % (0.0-1.0); EOSINOPHILS PERCENT AUTO 2.8 % (1.0-3.0); HEMATOCRIT 35.2 % (40.0-54.0); HEMOGLOBIN 10.7 g/dL (14.0-18.0); LYMPHOCYTES PERCENT AUTO 24.8 % (20.5-50.1); MEAN CORPUSCULAR HEMOGLOBIN 29.7 pg (27.0-34.0); MEAN CORPUSCULAR HGB CONC 30.4 g/dL (33.0-35.0); MEAN CORPUSCULAR VOLUME 97.8 fL (80-100); MONOCYTES PERCENT AUTO 7.9 % (2-8); NEUTROPHILS PERCENT AUTO 64.1 % (42.2-75.2); PLATELET COUNT,PLT 188 10^3/uL (150-450); WHITE BLOOD CELL COUNT,WBC 5.3 10^3/uL (5.0-10.0)
[2023-11-30 07:04] LABS: ALBUMIN 2.3 g/dL (3.4-5.0); ANION GAP 7.4 mEq/L (7-13); BILIRUBIN TOTAL 0.7 mg/dL (0.2-1.0); BUN/CREATININE RATIO 18.2 (No establ ref range); C-REACTIVE PROTEIN 1.97 ng/dL (<=0.50); CALCIUM 7.9 mg/dL (8.5-10.1); CREATININE 0.88 mg/dL (0.70-1.30); EST CRCL DRUG DOSING (CG) 76.06 mL/min; MAGNESIUM 1.8 mg/dL (1.8-2.4); POTASSIUM,K 4.4 mmol/L (3.5-5.1)
[2023-11-30 07:07] LABS: A/G RATIO 0.62
[2023-11-30] MEDS: Pantoprazole 40 MG in Sodium Chloride 0.9% 100 ML IV SCH ×2 (12:48→15:28)
[2023-11-30] MEDS: guaiFENesin/Dextromethorphan 100-10 MG/5 ML Soln 5 ML Cup PO PRN (23:28)
[2023-12-01] MEDS: Pantoprazole 40 MG in Sodium Chloride 0.9% 100 ML IV SCH (06:34)
[2023-12-01 07:10] LABS: BASOPHILS PERCENT AUTO 0.4 % (0.0-1.0); EOSINOPHILS PERCENT AUTO 3.8 % (1.0-3.0); HEMATOCRIT 34.9 % (40.0-54.0); HEMOGLOBIN 10.8 g/dL (14.0-18.0); LYMPHOCYTES PERCENT AUTO 24.6 % (20.5-50.1); MEAN CORPUSCULAR HEMOGLOBIN 30.1 pg (27.0-34.0); MEAN CORPUSCULAR HGB CONC 30.9 g/dL (33.0-35.0); MEAN CORPUSCULAR VOLUME 97.2 fL (80-100); MONOCYTES PERCENT AUTO 9.4 % (2-8); NEUTROPHILS PERCENT AUTO 61.8 % (42.2-75.2); PLATELET COUNT,PLT 207 10^3/uL (150-450); RED BLOOD CELL COUNT 3.59 10^6/uL (4.6-6.2); WHITE BLOOD CELL COUNT,WBC 5.2 10^3/uL (5.0-10.0)
[2023-12-01 12:05] VITALS: BP 128/74; PULSE 71
== END 2023-12-01 11:50 | disposition home health service (06) | DRG 177 ==
LOC: DL.ED 13:46 → DL.MS 17:07
PROVIDERS: ADMIT Internal Medicine; ATTEND Family Medicine Adult Medicine
DX: I48.91 Unspecified atrial fibrillation (principal); J69.0 Pneumonitis due to inhalation of food and vomit; J96.01 Acute respiratory failure with hypoxia; K27.4 Chronic or unspecified peptic ulcer, site unspecified, with hemorrhage; M62.82 Rhabdomyolysis; I69.351 Hemiplegia and hemiparesis following cerebral infarction affecting right dominant side; I48.20 Chronic atrial fibrillation, unspecified; E87.20 Acidosis, unspecified; H54.7 Unspecified visual loss; E78.00 Pure hypercholesterolemia, unspecified; I10 Essential (primary) hypertension; E66.9 Obesity, unspecified; W19.XXXA Unspecified fall, initial encounter; R05.1 Acute cough; S40.812A Abrasion of left upper arm, initial encounter; S30.811A Abrasion of abdominal wall, initial encounter; E86.0 Dehydration; J40 Bronchitis, not specified as acute or chronic; R73.9 Hyperglycemia, unspecified; E80.6 Other disorders of bilirubin metabolism; E88.09 Other disorders of plasma-protein metabolism, not elsewhere classified; E55.9 Vitamin D deficiency, unspecified; I69.320 Aphasia following cerebral infarction; Z79.01 Long term (current) use of anticoagulants; Z79.899 Other long term (current) drug therapy; Z68.25 Body mass index [BMI] 25.0-25.9, adult; Z79.2 Long term (current) use of antibiotics; Z79.51 Long term (current) use of inhaled steroids
CPT/HCPCS: 0241U; 36415; 71045; 71046; 80053; 81001; 82272; 82306; 82550; 82947; 83605; 83735; 84145; 84439; 84443; 85014; 85018; 85025; 86140; 92610; 93005; 93010; 96360; 96361; 97161; 97165; 99284; 99285; 97530-GP; A9270-GY; C9113; J0295; J0456; J1956; J2543; J3490; J7030; J7050

== ENCOUNTER 2024-02-09 05:40 | Day surgery (SDC) | payer OTHER ==
[2024-02-09] MEDS ORDERED: fentaNYL 100 MCG/2 ML SDV ONE (06:15)
[2024-02-09] MEDS ORDERED: Midazolam 1 MG/ML 2 ML SDV ONE (06:15)
[2024-02-09] MEDS: Dextrose 5%-0.45% NaCl 1,000 ML IV SCH (06:23)
[2024-02-09] MEDS: fentaNYL 100 MCG/2 ML SDV IV ONE ×2 (06:50→06:51)
[2024-02-09] MEDS: Midazolam 1 MG/ML 2 ML SDV IV ONE ×2 (06:51→06:53)
[2024-02-09 09:43] VITALS: BP 139/66; PULSE 86
== END 2024-02-09 08:35 | disposition home or self-care (01) ==
LOC: DL.ENDO 05:40
PROVIDERS: ATTEND Internal Medicine Gastroenterology
DX: K63.5 Polyp of colon (principal); K64.4 Residual hemorrhoidal skin tags; K64.8 Other hemorrhoids; K57.30 Diverticulosis of large intestine without perforation or abscess without bleeding; E78.5 Hyperlipidemia, unspecified; D64.9 Anemia, unspecified
CPT/HCPCS: 88305; J2250; J3010; J7042